=== PATIENT | female | born 1960 | race Caucasian/White ===

== ENCOUNTER → 2023-10-11 15:04 | Outpatient (CLI) | payer MEDICARE, SELFPAY ==
--- NOTE | 2023-10-11 15:11 | DI.US.S_ITS ---
PROCEDURE: US THYROID INDICATIONS: Abnormal results of thyroid function studies TECHNIQUE: Real-time scanning was performed of the thyroid gland, with image documentation. COMPARISON: None. FINDINGS: Thyroid: Right lobe measures 5.5 x 2.1 x 1.9 cm. Left lobe measures 5.2 x 2.2 x 1.5 cm. Isthmus is 0.8 cm thick. Echotexture is diffusely heterogeneous. No discrete thyroid nodule is identified. No neck soft tissue lymphadenopathy. IMPRESSION: Diffusely heterogeneous thyroid parenchymal echotexture without distinct nodule. No neck soft tissue lymphadenopathy. ACR TI-RADS definitions and recommendations: TI-RADS 1 (benign): 0 points. FNA not needed. TI-RADS 2 (not suspicious): 2 points. FNA not needed. TI-RADS 3 (mildly suspicious): 3 points. * FNA if 2.5 cm or larger, follow up if 1.5 cm or larger (at 1, 3, and 5 years). TI-RADS 4 (moderately suspicious): 4-6 points. * FNA if 1.5 cm or larger, follow up if 1 cm or larger (at 1, 2, 3, and 5 years). TI-RADS 5 (highly suspicious): 7 points or more. * FNA if 1 cm or larger, follow up if 0.5 cm or larger (every year for 5 years). Dictated by: Refugio Yates M.D. on 10/11/2023 at 21:39 Approved by: Refugio Yates M.D. on 10/11/2023 at 21:40
== END ==
PROVIDERS: Family Provider Nurse Practitioner; PCP Nurse Practitioner; Referring Provider Family Medicine; Visit Provider Family Medicine
DX: R94.6 Abnormal results of thyroid function studies (principal); Z80.8 Family history of malignant neoplasm of other organs or systems
CPT/HCPCS: 76536